=== PATIENT | female | born 1990 | race Caucasian/White ===

== ENCOUNTER → 2021-05-12 | Day surgery (SDC) | payer OTHER ==
[~2021-05-12] VITALS: Ht 167.6 cm; Wt 60.8 kg
[2021-05-12 06:15] LABS: HEMOGLOBIN 12.4 gm/dl (12.3-15.3); RED BLOOD COUNT 4.05 M/UL (4.00-5.10); WHITE BLOOD COUNT 5.5 K/UL (4.5-11.0)
== END | disposition home or self-care (01) ==
LOC: OR 05:26
PROVIDERS: Obstetrics & Gynecology
DX: N83.292 Other ovarian cyst, left side (principal); N70.11 Chronic salpingitis; Z98.51 Tubal ligation status; Z88.0 Allergy status to penicillin; Z72.0 Tobacco use; N80.1 Endometriosis of ovary
CPT/HCPCS: 36415; 84703; 85025; J0690; J1100; J1885; J2001; J2250; J2405; J2704; J2710; J2795; J3010; J7120